=== PATIENT | female | born 1950 | race Caucasian/White ===

== ENCOUNTER → 2017-11-19 | Outpatient (CLI) | payer OTHER ==
[~2017-11-19] MED LIST: CIPR-255 PO; LEVO100T PO; LSN/10125 PO; METF500T5 PO; OXYC-737 PO; VNTHFA/IN INH
== END | disposition home or self-care (01) ==
LOC: C.LABSPEC 17:31
PROVIDERS: ATTEND Urology
DX: N20.0 Calculus of kidney (principal)

== ENCOUNTER → 2017-11-19 | Outpatient (CLI) | payer OTHER ==
--- NOTE | 2017-11-19 14:07 | DIAGNOSTIC IMAGING REPORT ---
KUB CLINICAL HISTORY: Nephrolithiasis status post lithotripsy. FINDINGS: 2 AP supine abdominal radiographs are compared to study dated 10/23/2017 and correlated with abdominal CT dated 11/08/2017. Cholecystectomy clips are seen in the right upper quadrant. There is no bowel obstruction. A right ureteral stent has been placed. No calcifications are identified along the course of the stent. Stones/stone fragments project over the lower pole of the right kidney. No calcifications are seen projecting over the left kidney or along the course of the left ureter. Numerous phleboliths are identified in the pelvis. The skeletal structures are osteopenic. Mild spondylotic change is noted in the lumbar spine. IMPRESSION: 1. A right ureteral stent has been placed. No calcifications project along the course of the stent. 2. Stones/stone fragments project over the lower pole of the right kidney. 3. No calculi are seen projecting over the left kidney. Electronically signed by: Brady Cormier M.D. 11/19/2017 2:06 PM Dictated Date/Time: 11/19/2017 2:03 PM
== END | disposition home or self-care (01) ==
LOC: C.RAD 12:18
PROVIDERS: ATTEND Urology
DX: N20.0 Calculus of kidney (principal)

== ENCOUNTER → 2017-12-11 | Outpatient (CLI) | payer OTHER ==
--- NOTE | 2017-12-11 12:54 | DIAGNOSTIC IMAGING REPORT ---
KUB CLINICAL HISTORY: CALCULUS OF KIDNEY COMPARISON STUDY: CT of the abdomen and pelvis November 08, 2017 and KUB November 19, 2017. FINDINGS: The right ureteral stent has been removed. No definite ureteral calculi or fragments are identified. Subtle calcific density projecting over the expected location of the proximal right ureter is noted. Several fragment/calculi within lower pole of the right kidney are noted. These have diminished since exam of November 19, 2017. Pelvic calcifications reflect phleboliths. IMPRESSION: 1. Interval removal of right ureteral stent. Subtle calcific density projecting over the expected location of the proximal right ureter are probably artifactual although tiny calculi/fragments would be difficult to exclude. 2. Calculi/fragments within the lower pole of the right kidney. Interval decrease since previous exam. Electronically signed by: Fabián Burgos M.D. 12/11/2017 12:52 PM Dictated Date/Time: 12/11/2017 12:49 PM
== END | disposition home or self-care (01) ==
LOC: C.RAD 11:25
PROVIDERS: ATTEND Urology
DX: N20.0 Calculus of kidney (principal)